=== PATIENT | female | born 1955 | race Caucasian/White ===

== ENCOUNTER 2023-08-05 09:46 | Outpatient (CLI) | payer MEDICARE, OTHER ==
[2023-08-05] MEDS ORDERED: iohexol 300mg/ml 100ml inj. ONE (10:02)
== END 2023-08-05 23:59 | disposition home or self-care (01) ==
LOC: RAD 09:46
PROVIDERS: ATTEND Nurse Practitioner
DX: C79.51 Secondary malignant neoplasm of bone (principal); K76.89 Other specified diseases of liver
CPT/HCPCS: 74177; J3490; Q9967